=== PATIENT | male | born 1985 | race Caucasian/White ===

== ENCOUNTER 2018-01-19 17:30 | Emergency (ER) | payer SELFPAY ==
[2018-01-19] MEDS: KETOROLAC 60 MG INJ IM (18:18)
== END 2018-01-19 22:12 | disposition home or self-care (01) ==
LOC: FTE 17:30 → E/R 22:12
DX: S43.015A Anterior dislocation of left humerus, initial encounter (principal); F17.210 Nicotine dependence, cigarettes, uncomplicated; X58.XXXA Exposure to other specified factors, initial encounter; Y92.9 Unspecified place or not applicable
CPT/HCPCS: 29105; 73030; 96372; 99284-25